=== PATIENT | male | born 1995 | race African-American/Black ===

== ENCOUNTER 2016-11-13 21:31 | Emergency (ER) | payer OTHER ==
[~2016-11-13] VITALS: Ht 175.3 cm; Wt 73.4 kg
[~2016-11-13 21:31] MED LIST: BENTYL10 MG PO; FIORICET 50-301 EACH PO; MOTRIN800 MG PO; PEN-VEE K,VEET500 MG PO; PYRIDIUM200 MG PO; ZANTAC150 MG PO; ZOFRAN4 MG PO
[2016-11-13 23:35] VITALS: BP 159/87
== END 2016-11-14 00:04 ==
LOC: EME → EDBD 21:31 → EME 21:31
PROC: 2W3QX1Z Immobilization of Right Lower Leg using Splint (ICD-10-PCS; principal; 2016-11-13)
DX: S82.64XA Nondisplaced fracture of lateral malleolus of right fibula, initial encounter for closed fracture (principal); W51.XXXA Accidental striking against or bumped into by another person, initial encounter; W18.39XA Other fall on same level, initial encounter; Y93.67 Activity, basketball; Y92.149 Unspecified place in prison as the place of occurrence of the external cause
CPT/HCPCS: 73610; 73630; 99281; 99284